=== PATIENT | female | born 1960 ===

== ENCOUNTER 2017-08-06 16:26 | Emergency (ER) | payer SELFPAY ==
[2017-08-06 17:07] VITALS: RESP 18; O2SAT 97
--- NOTE | 2017-08-06 18:59 | C.PDOC ---
History Of Present Illness 56 year old female presents to the ED for evaluation of facial pain and nasal congestion which began 2 days ago. Patient reports a history of sinusitis and notes current symptoms feels similar to prior. Patient took unknown allergy medicine with transient relief. She denies cough, shortness of breath, chest pain, fever, difficulty with breathing/swallowing. Time Seen by Provider: 08/06/17 18:36 Chief Complaint (Nursing): ENT Problem History Per: Patient, Scrub Technician History/Exam Limitations: language barrier Onset/Duration Of Symptoms: Hrs Current Symptoms Are (Timing): Still Present Sick Contacts (Context): None Associated Symptoms: Nasal Congestion. denies: Cough Ear Symptoms: Bilateral: None Additional History Per: Patient Past Medical History Reviewed: Historical Data, Nursing Documentation, Vital Signs Vital Signs: Last Vital Signs Temp 97.8 F 08/06/17 19:29 Pulse 68 08/06/17 19:29 Resp 18 08/06/17 19:29 BP 136/76 08/06/17 19:29 Pulse Ox 97 08/06/17 21:41 - Medical History PMH: Gastrointestinal Ulcer, Pneumonia Surgical History: Cholecystectomy - [facility] Procedures ENDOSCOPIC BRONCHIAL BX (04/19/13) INJECT ANTIBIOTIC (04/18/13) LARYGNOSCOPY AND OTH TRACHEOSCOPY (04/19/13) Family History: States: Unknown Family Hx - Social History Hx Tobacco Use: No Hx Alcohol Use: No Hx Substance Use: No - Immunization History Hx Tetanus Toxoid Vaccination: No Hx Influenza Vaccination: No Hx Pneumococcal Vaccination: No Review Of Systems ENT: Positive for: Nose Congestion, Other (facial pain ) Cardiovascular: Negative for: Chest Pain Respiratory: Negative for: Cough, Shortness of Breath Physical Exam - Physical Exam Appears: Non-toxic, No Acute Distress Skin: Normal Color, Warm, Dry Head: Normacephalic, Tenderness (malar ), No Swelling, No Abrasion Eye(s): bilateral: Normal Inspection, PERRL, EOMI Ear(s): Bilateral: Normal Nose: Normal Oral Mucosa: Moist Throat: Normal, No Erythema, No Exudate Neck: Normal ROM, Supple Lymphatic: Normal Exam Chest: Symmetrical, No Deformity, No Tenderness Cardiovascular: Rhythm Regular, No Murmur Respiratory: Normal Breath Sounds, No Rales, No Rhonchi, No Wheezing Extremity: Normal ROM, Capillary Refill (less than 2 seconds ) Neurological/Psych: Oriented x3, Normal Speech, Normal Cognition Gait: Steady ED Course And Treatment O2 Sat by Pulse Oximetry: 97 (on RA) Pulse Ox Interpretation: Normal Progress Note: Patient is advised to follow up with her PMD within 1-3 days for further evaluation. Client Technical Professional used to ensure understanding. Instructed to return to ER if symptoms persist or worsen. Disposition - Disposition Referrals: [facility] at [facility] [Outside] Disposition: HOME/ ROUTINE Disposition Time: 18:57 Condition: STABLE Additional Instructions: Vaya a hameed mdico o la clnica en 1-3 watkins sin falta, para mas evaluacin. [place] los medicamentos xin indicado. Volver a la jenna de emergencia en cualquier momento si los sntomas persisten o empeoran. 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 - Scribe Statement The provider has reviewed the documentation as recorded by the Scribe (Dee Gonzales) All medical record entries made by the Scribe were at my direction and personally dictated by me. I have reviewed the chart and agree that the record accurately reflects my personal performance of the history, physical exam, medical decision making, and the department course for this patient. I have also personally directed, reviewed, and agree with the discharge instructions and disposition.
[2017-08-06 19:30] VITALS: BP 136/76; PULSE 68; TEMP 97.8
== END 2017-08-06 19:30 | disposition home or self-care (01) ==
LOC: C.ER 16:26
DX: J32.9 Chronic sinusitis, unspecified (principal)

== ENCOUNTER 2017-12-20 11:56 | Emergency (ER) | payer OTHER ==
[2017-12-20 12:32] VITALS: BP 96/61; PULSE 75; RESP 20; TEMP 98; O2SAT 98
--- NOTE | 2017-12-20 12:56 | C.PDOC ---
History Of Present Illness 57 year old female presents to ED with 3 days history of nasal congestion and cough. She reports this morning she had nosebleed from left nare. Denies any headche, fever, chills, bodyaches, chest pain, SOB. Time Seen by Provider: 12/20/17 12:48 Chief Complaint (Nursing): Cough, Cold, Congestion History Per: Patient History/Exam Limitations: no limitations Onset/Duration Of Symptoms: Days Current Symptoms Are (Timing): Still Present Location Of Pain: None Sick Contacts (Context): None Associated Symptoms: Cough, Nasal Congestion, Other ((+) Nose bleed. (-) Headache, Body aches). denies: Fever, Chills, Myalgias Ear Symptoms: Bilateral: None Recent travel outside of the [place]: No Past Medical History Reviewed: Historical Data, Nursing Documentation, Vital Signs Vital Signs: Last Vital Signs Temp 98 F 12/20/17 12:30 Pulse 75 12/20/17 12:30 Resp 20 12/20/17 12:30 BP 96/61 L 12/20/17 12:30 Pulse Ox 98 12/20/17 12:57 - Medical History PMH: Gastrointestinal Ulcer, Pneumonia Surgical History: [facility]ole[facility] - [facility] Procedures ENDOSCOPIC BRONCHIAL BX (04/19/13) INJECT ANTIBIOTIC (04/18/13) LARYGNOSCOPY AND OTH TRACHEOSCOPY (04/19/13) Family History: States: Unknown Family Hx - Social History Hx Tobacco Use: No Hx Alcohol Use: No Hx Substance Use: No - Immunization History Hx Tetanus Toxoid Vaccination: No Hx Influenza Vaccination: No Hx Pneumococcal Vaccination: No Review Of Systems Constitutional: Negative for: Fever, Chills ENT: Positive for: Nose Congestion Cardiovascular: Negative for: Chest Pain Respiratory: Positive for: Cough. Negative for: Shortness of Breath Musculoskeletal: Negative for: Other (Body aches) Neurological: Negative for: Headache Physical Exam - Physical Exam Appears: Non-toxic, No Acute Distress Skin: Normal Color, Warm, Dry Head: Atraumatic, Normacephalic Eye(s): bilateral: Normal Inspection Ear(s): Bilateral: Normal Nose: Normal, No Epistaxis Oral Mucosa: Moist Throat: Normal, No Erythema, No Exudate Neck: Normal, Supple Chest: Symmetrical, No Tenderness Cardiovascular: Rhythm Regular Respiratory: Normal Breath Sounds, No Rales, No Rhonchi, No Wheezing Neurological/Psych: Oriented x3, Normal Speech ED Course And Treatment O2 Sat by Pulse Oximetry: 98 (room air) Pulse Ox Interpretation: Normal Medical Decision Making Medical Decision Making: Patient with multi-symptom complaints, likely viral. Patient appears non-toxic and in no distress. Lungs clear bilaterally. No epistaxis in ED. Rx given. Patient advised to rest, drink fluids and take medications for supportive treatment. Patient stable for discharge and given follow up instructions. Disposition Counseled Patient/Family Regarding: Diagnosis, Need For Followup, Rx Given - Disposition Referrals: [facility] [Outside] [facility] [Outside] Disposition: HOME/ ROUTINE Disposition Time: 12:55 Condition: GOOD Additional Instructions: Your prescription was sent to [facility] Take Tylenol or Motrin alternating every 4-6 hours for Fever 100.4F or higher. Take cough medicine as needed Follow up with your doctor Lama prescripcin fue enviada a la farmacia de [place] Tylenol o Motrin alternando cada 4-6 horas para Fiebre 100.4F o superior. 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 - Scribe Statement The provider has reviewed the documentation as recorded by the Scribe Marv Erci All medical record entries made by the Ushaibalex were at my direction and personally dictated by me. I have reviewed the chart and agree that the record accurately reflects my personal performance of the history, physical exam, medical decision making, and the department course for this patient. I have also personally directed, reviewed, and agree with the discharge instructions and disposition.
== END 2017-12-20 13:02 | disposition home or self-care (01) ==
LOC: C.ER 11:56
DX: J06.9 Acute upper respiratory infection, unspecified (principal)

== ENCOUNTER 2018-02-26 16:05 | Emergency (ER) | payer OTHER ==
[2018-02-26 16:19] VITALS: RESP 18; TEMP 97.8
--- NOTE | 2018-02-26 17:14 | C.PDOC ---
History Of Present Illness 57 y/o female presents to ED sent from clinic for evaluation of mid sternal chest pain. Patient states pain has been intermittent for 2 months and is non radiating. Patient denies sob, cough, dyspnea, fever, chills, nausea, vomiting or any other complaints at this time. Time Seen by Provider: 02/26/18 16:56 Chief Complaint (Nursing): Chest Pain History Per: Patient History/Exam Limitations: no limitations Onset/Duration Of Symptoms: Days Current Symptoms Are (Timing): Still Present Quality: "Pain" Past Medical History Reviewed: Historical Data, Nursing Documentation, Vital Signs Vital Signs: Last Vital Signs Temp 97.8 F 02/26/18 16:16 Pulse 64 02/26/18 16:16 Resp 18 02/26/18 16:16 BP 117/71 02/26/18 16:16 Pulse Ox 99 02/26/18 18:31 - Medical History PMH: Gastrointestinal Ulcer, Pneumonia Surgical History: Cholecystectomy - [facility] Procedures ENDOSCOPIC BRONCHIAL BX (04/19/13) INJECT ANTIBIOTIC (04/18/13) LARYGNOSCOPY AND OTH TRACHEOSCOPY (04/19/13) Family History: States: No Known Family Hx - Social History Hx Tobacco Use: No Hx Alcohol Use: No Hx Substance Use: No - Immunization History Hx Tetanus Toxoid Vaccination: No Hx Influenza Vaccination: No Hx Pneumococcal Vaccination: No Review Of Systems Constitutional: Negative for: Fever, Chills Cardiovascular: Positive for: Chest Pain Respiratory: Negative for: Cough, Shortness of Breath Skin: Negative for: Rash Neurological: Negative for: Weakness, Numbness Physical Exam - Physical Exam Appears: Non-toxic, No Acute Distress Skin: Warm, Dry, No Rash Head: Atraumatic, Normacephalic Eye(s): bilateral: Normal Inspection Oral Mucosa: Moist Neck: Normal ROM, Supple Chest: Tenderness (Reproducible chest wall) Cardiovascular: Rhythm Regular Respiratory: Normal Breath Sounds, No Rales, No Rhonchi, No Wheezing Gastrointestinal/Abdominal: Soft, No Tenderness, No Guarding, No Rebound Extremity: Normal ROM, No Pedal Edema, Capillary Refill (<2 seconds) Neurological/Psych: Oriented x3, Normal Speech, Normal Cognition ED Course And Treatment - Laboratory Results Result Diagrams: 02/26/18 17:31 02/26/18 17:31 ECG: Interpreted By Me, Viewed By Me ECG Rhythm: Sinus Rhythm Rate From EC (bpm) O2 Sat by Pulse Oximetry: 99 (ra) Pulse Ox Interpretation: Normal Medical Decision Making Medical Decision Making: Blood work, ECG Progress: Results of exams all within normal limits, Patient discharged Disposition Counseled Patient/Family Regarding: Studies Performed, Diagnosis, Need For Followup, Rx Given - Disposition Referrals: [facility] [Outside] Disposition: HOME/ ROUTINE Disposition Time: 18:30 Condition: STABLE Prescriptions: Ibuprofen [Motrin] 1 tab PO TID PRN #30 tab PRN Reason: Pain Instructions: Costochondritis (DC) Forms: Gen Discharge Inst German, [facility] (German) - POA Present On Arrival: None - Clinical Impression Clinical Impression: Chest wall pain - Scribe Statement The provider has reviewed the documentation as recorded by the Scribalex Aguilar All medical record entries made by the Scribe were at my direction and personally dictated by me. I have reviewed the chart and agree that the record accurately reflects my personal performance of the history, physical exam, medical decision making, and the department course for this patient. I have also personally directed, reviewed, and agree with the discharge instructions and disposition.
[2018-02-26] MEDS ORDERED: Aspirin 325 mg EC Tablets PO STA (17:30)
[2018-02-26 17:40] LABS: BASO # 0.1 K/uL (0.0-0.2); EOS # 0.1 K/uL (0.0-0.7); HEMOGLOBIN 11.5 g/dL (11.0-16.0); LYMPH # 2.6 K/uL (1.0-4.3); LYMPH % 39.4 % (20.0-40.0); MEAN CELL VOLUME 84.6 fL (81.0-99.0); MEAN CORPUSCULAR HEMOGLOBIN 28.2 pg (27.0-31.0); MEAN CORPUSCULAR HGB CONC 33.3 g/dL (33.0-37.0); MEAN PLATELET VOLUME 7.1 fL (7.2-11.7); MONO # 0.8 K/uL (0.0-0.8); MONO % 12.7 % (0.0-10.0); NEUT % 44.9 % (50.0-75.0); NRBC % 0.1 % (0.0-2.0); RBC 4.09 Mil/uL (3.80-5.20); RED CELL DISTRIBUTION WIDTH 13.3 % (11.5-14.5); WHITE BLOOD COUNT 6.6 K/uL (4.8-10.8)
[2018-02-26 18:00] LABS: ALB/GLOB RATIO 0.8 (1.0-2.1); ALBUMIN 4.1 g/dL (3.5-5.0); ALT/SGPT 33 U/L (9-52); AST/SGOT 33 U/L (14-36); BLOOD UREA NITROGEN 13 mg/dL (7-17); CALCIUM 9.8 mg/dl (8.6-10.4); GFR AFRICAN-AMERICAN > 60; GFR NON-AFRICAN AMERICAN > 60
[2018-02-26 18:12] LABS: B-TYPE NATRIURETIC PEPTIDE 68.3 pg/mL (0-900)
[2018-02-26 19:18] VITALS: BP 136/76; PULSE 68; O2SAT 98
--- NOTE | 2018-02-27 13:27 | CARD ---
APPROVED REPORT EKG Measurement Heart [id number] <Conclusion> Normal sinus rhythm Normal ECG
== END 2018-02-26 19:18 | disposition home or self-care (01) ==
LOC: C.ER 16:05
DX: R07.89 Other chest pain (principal)

== ENCOUNTER 2018-04-11 12:44 | Emergency (ER) | payer OTHER ==
[2018-04-11 12:47] VITALS: BMI 24.1
[2018-04-11 12:52] VITALS: RESP 18; TEMP 98.2; O2SAT 98
[2018-04-11] MEDS ORDERED: Naproxen 550 mg Tab PO STA (13:11)
[2018-04-11] MEDS ORDERED: Naproxen 550 mg Tab PO ONE (13:21)
--- NOTE | 2018-04-11 13:41 | C.PDOC ---
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 The patient denies fall or trauma but comes in today because the symptoms have worsened. Denies fever, numbness, weakness, or rash. Time Seen by Provider: 04/11/18 12:52 Chief Complaint (Nursing): Finger,Hand,&Wrist History Per: Patient History/Exam Limitations: no limitations Current Symptoms Are (Timing): Still Present Past Medical History Reviewed: Historical Data, Nursing Documentation, Vital Signs Vital Signs: Last Vital Signs Temp 98.2 F 04/11/18 12:47 Pulse 70 04/11/18 14:03 Resp 18 04/11/18 14:03 BP 138/79 04/11/18 14:03 Pulse Ox 98 04/11/18 14:03 - Medical History PMH: Gastrointestinal Ulcer, Pneumonia Surgical History: Cholecystectomy - [facility] Procedures ENDOSCOPIC BRONCHIAL BX (04/19/13) INJECT ANTIBIOTIC (04/18/13) LARYGNOSCOPY AND OTH TRACHEOSCOPY (04/19/13) Family History: States: No Known Family Hx - Social History Hx Tobacco Use: No Hx Alcohol Use: No Hx Substance Use: No - Immunization History Hx Tetanus Toxoid Vaccination: No Hx Influenza Vaccination: No Hx Pneumococcal Vaccination: No Review Of Systems Constitutional: Negative for: Fever Musculoskeletal: Positive for: Other (wrist pain) Skin: Negative for: Rash Neurological: Negative for: Weakness, Numbness Physical Exam - Physical Exam Appears: Well, Non-toxic, No Acute Distress Skin: Normal Color, Warm, Dry, No Rash Head: Normacephalic Eye(s): bilateral: Normal Inspection Nose: Normal Oral Mucosa: Moist Lips: Normal Appearing Neck: Normal ROM Respiratory: No Accessory Muscle Use Extremity: Normal ROM, Tenderness, No Deformity, Other (Mild swelling and tenderness to dorsal right wrist) Pulses: Left Radial: Normal, Right Radial: Normal Neurological/Psych: Oriented x3, Normal Speech ED Course And Treatment O2 Sat by Pulse Oximetry: 98 (RA) Pulse Ox Interpretation: Normal - Other Rad XR Wrist X-Ray: Viewed By Me, Read By Radiologist Interpretation: Accession No. : [id number]. Patient Name / ID : JOSIAS CARDENAS / [id number]. Exam Date : 04/11/2018 13:27:47 ( Approved ). Study Comment : Sex / Age : F / 57Y. Creator : Augusta Alaniz MD. Dictator : Augusta Alaniz MD. Pricing Coordinator : [employer] Blower : Augusta Alaniz MD. Approver2 : Report Date : 04/11/2018 13:41:27. My Comment : . PROCEDURE: Right Wrist Radiographs. . HISTORY: pain, over use injury. COMPARISON: None. FINDINGS : BONES: Bone alignment and mineralization are normal. There is no acute displaced fracture or bone destruction. JOINTS: The proximal and distal carpal rows are maintained. No significant degenerative osteoarthrosis. No dislocation. SOFT TISSUES: Normal. OTHER FINDINGS: None. IMPRESSION: No acute fracture, dislocation or significant degenerative osteoarthrosis. Medical Decision Making Medical Decision Making: Xrays of the wrist are negative for fracture or dislocation. The patient was placed in a velcro wrist splint. Instructed to follow up with Ortho if symptoms persists after 1 week. Disposition - Disposition Referrals: [facility] [Outside] Disposition: HOME/ ROUTINE Disposition Time: 13:42 Condition: GOOD Additional Instructions: Follow up with the medical doctor/clinic within 1-2 days. Return if worsened. Prescriptions: Naproxen [Naprosyn] 500 mg PO BID #20 tab Instructions: De Quervain's Tenosynovitis, Common Wrist Injuries (DC) Forms: [facility] [facility] (Ukrainian), Work Excuse Print Language: URUGUAYAN - Clinical Impression Clinical Impression: Wrist tendonitis
--- NOTE | 2018-04-11 13:43 | RAD ---
PROCEDURE: Right Wrist Radiographs. HISTORY: pain, over use injury COMPARISON: None. FINDINGS: BONES: Bone alignment and mineralization are normal. There is no acute displaced fracture or bone destruction. JOINTS: The proximal and distal carpal rows are maintained. No significant degenerative osteoarthrosis. No dislocation. SOFT TISSUES: Normal. OTHER FINDINGS: None. IMPRESSION: No acute fracture, dislocation or significant degenerative osteoarthrosis.
[2018-04-11 14:04] VITALS: BP 138/79; PULSE 70
== END 2018-04-11 14:03 | disposition home or self-care (01) ==
LOC: C.ER 12:44
DX: M77.9 Enthesopathy, unspecified (principal)